=== PATIENT | female | born 1985 | race African-American/Black ===

== ENCOUNTER 2016-12-14 10:09 | Inpatient (IN) | payer MEDICAID ==
[2016-12-14] MEDS ORDERED: ULTRAM50 MG PO (12:15)
[2016-12-14] MEDS ORDERED: METOPROLOL TART50 MG PO (12:16)
[2016-12-14] MEDS ORDERED: KEPPRA500 MG PO (12:16)
[2016-12-14] MEDS ORDERED: RENAGEL800 MG PO (12:17)
[2016-12-14] MEDS ORDERED: ROCALTROL0.25 MCG PO (12:19)
[2016-12-14] MEDS ORDERED: LANTUS INSULIN10 ML SC ×2 (12:20→12:21)
[2016-12-14] MEDS ORDERED: HUMALOG 30100 UNITS/ SC (12:20)
[2016-12-14 12:38] VITALS: BMI 22.6
[2016-12-14 12:40] LABS: HCG URINE NEGATIVE (NEGATIVE)
[2016-12-14 12:59] LABS: BASOPHILS 0.2 % (0-2); EOSINOPHILS 1.2 % (0-7); HEMATOCRIT 37.9 % (36.0-48.0); HEMOGLOBIN 11.9 g/dL (12-16); IMMATURE GRANULOCYTES 0.2 % (0-5); LYMPHOCYTES 11.6 % (15-50); MCH 29.8 pg (26.0-34.0); MCHC 31.4 g/dL (31.0-37.0); MCV 94.8 fL (80.0-100.0); MEAN PLATELET VOLUME 10.7 fL (7.4-10.4); MONOCYTES 7.4 % (2-11); NEUTROPHILS 79.4 % (40-80); PLATELET COUNT 240 10x3/uL (130-400); WBC 8.8 10x3/uL (4.8-10.8)
[2016-12-14 13:05] LABS: ANION GAP 19.2 mmol/L (8-16); CALCIUM 8.3 mg/dL (8.5-10.1); CARBON DIOXIDE 18.9 mmol/L (21.0-32.0); CREATININE - SERUM 10.8 mg/dL (0.6-1.3); POTASSIUM - SERUM 4.1 mmol/L (3.5-5.1)
[2016-12-14 13:08] LABS: INR 1.05 (0.85-1.17); PROTIME 13.5 SECONDS (11.6-15.0)
[2016-12-14 13:09] LABS: APTT 33.8 SECONDS (22.8-39.4)
--- NOTE | 2016-12-14 17:52 | NUR ---
RECIEVED FROM RECOVERY ROOM. V/S STABLE. BUPERNEX GIVEN FOR C/O PAIN. TO DIALYSIS PER BED
--- NOTE | 2016-12-14 18:35 | NUR ---
STILL IN DIALYSIS
[2016-12-14 18:42] LABS: HCG SERUM NEGATIVE (NEGATIVE)
--- NOTE | 2016-12-14 21:18 | NUR ---
PT BACK FROM DIALYSIS ASKING FOR FOOD AND PAIN RX. PT REMAINS ALERT AND ORIENTED. CONTINUE TO MONITOR CLOSELY.
[2016-12-15] VITALS: BP 160/98
[2016-12-15 04:00] VITALS: BP 183/107
--- NOTE | 2016-12-15 05:06 | NUR ---
PT RESTING COMFORTABLY THIS SHIFT, NO NEEDS. CONTINUE TO MONITOR CLOSELY.
[2016-12-15 05:14] LABS: BASOPHILS 0.3 % (0-2); EOSINOPHILS 1.8 % (0-7); HEMOGLOBIN 12.4 g/dL (12-16); IMMATURE GRANULOCYTES 0.4 % (0-5); LYMPHOCYTES 21.5 % (15-50); MCH 29.7 pg (26.0-34.0); MCHC 31.8 g/dL (31.0-37.0); MCV 93.3 fL (80.0-100.0); MEAN PLATELET VOLUME 10.5 fL (7.4-10.4); MONOCYTES 10.4 % (2-11); NEUTROPHILS 65.6 % (40-80); PLATELET COUNT 214 10x3/uL (130-400); RBC 4.18 10x6/uL (4.00-5.40); RDW 16.3 % (11.5-14.5); WBC 7.8 10x3/uL (4.8-10.8)
[2016-12-15 05:22] LABS: ANION GAP 15.4 mmol/L (8-16); CALCIUM 7.7 mg/dL (8.5-10.1)
[2016-12-15 05:23] LABS: CARBON DIOXIDE 24.6 mmol/L (21.0-32.0); CREATININE - SERUM 7.8 mg/dL (0.6-1.3)
--- NOTE | 2016-12-15 06:13 | NUR ---
CONSENTS FOR THROMBECTOMY, BLOOD, AND ANESTHESIA SIGNED AND IN PTS CHART.
[2016-12-15 07:16] VITALS: BP 161/96
--- NOTE | 2016-12-15 08:15 | NUR ---
PATIENT GONE TO OR PER BED
--- NOTE | 2016-12-15 09:13 | NUR ---
IN SURGERY AT THIS TIME. WILL MONITOR.
[2016-12-15 11:52] VITALS: BMI 22.6
--- NOTE | 2016-12-15 12:08 | NUR ---
PATIENT BACK FROM OR PER BED. RESTING WITH EYES CLOSED. ASSESSED LEFT ARM. BRUIT PRESENT. STATES NO NEEDS AT THIS TIME.
[2016-12-15 12:13] VITALS: BP 143/86; BMI 22.6
--- NOTE | 2016-12-15 15:03 | NUR ---
EXAMINED PATIENTS ARM. BRUIT IS PRESENT.
[2016-12-15 15:11] VITALS: BP 107/65
--- NOTE | 2016-12-15 17:31 | NUR ---
PATIENT RESTING IN BED, NO CHANGES. STATES NO NEEDS AT THIS TIME.
--- NOTE | 2016-12-15 18:00 | NUR ---
INTRODUCED SELF PRIMARY RN FOR THE DAY. RR EVEN AND UNLABORED. EXPLAINED THAT THEY WERE READY FOR PT IN DIALYSIS. TOOK PATIENT DOWN TO DIALYSIS X2 ASSIST. WILL GIVE REPORT.
--- NOTE | 2016-12-15 19:32 | NUR ---
REPORT RECEIVED. PT IN DIALYSIS AT THIS TIME.
[2016-12-15 20:00] VITALS: BP 92/47
--- NOTE | 2016-12-15 20:45 | NUR ---
PT BACK FROM DIALYSIS VIA BED. NO DISTRESS NOTED. WILL CONTINUE TO MONITOR.
--- NOTE | 2016-12-15 22:19 | NUR ---
ASSESSMENT COMPLTED AT 2044 HRS. BP 92/47. OTHER VSS. IV TO RFA SL. R CHEST HEMOPSLIT CLEAN,DRY AND INTACT. L UPPER ARM FISTULA WITH BRUIT NOTED. UNABLE TO PALPATE. LUNGS CTA. ULRAM 50MG PO GINVE FOR C/O R ARM PAIN. LOPRESSOR HELD DUE TO BP 92/47. REEVALUATED AT 2209 WITH PAIN STILL 9/10. BUPRENEX 0.1MG IV TO R UPPER BUTTOCKS GIVEN. WILL CONTINUE TO MONITOR. SR UP X2, CALL LIGHT WITHIN REACH.
[2016-12-16] VITALS: BP 136/95
--- NOTE | 2016-12-16 00:39 | NUR ---
PT STATED HE THREW UP HER DINNER. BED LINENS CAHNGED. PT DECLINED OFFER FOR IM PHENERGAN. WILL CONTINUE TO MONITOR.
--- NOTE | 2016-12-16 02:11 | NUR ---
PT RESTING WITH EYES CLOSED. RESP EVEN AND REGULAR. SR UP X2, CALL LIGHT WITHIN REACH.
[2016-12-16 04:00] VITALS: BP 167/98
--- NOTE | 2016-12-16 04:25 | NUR ---
PT KELLY BOLTON LEVEL NOW 06/27. WILL CONTINUE TO MONITOR.
[2016-12-16 05:06] LABS: BASOPHILS 0.4 % (0-2); EOSINOPHILS 1.7 % (0-7); HEMATOCRIT 39.5 % (36.0-48.0); HEMOGLOBIN 12.3 g/dL (12-16); IMMATURE GRANULOCYTES 0.3 % (0-5); LYMPHOCYTES 16.3 % (15-50); MCH 29.9 pg (26.0-34.0); MCHC 31.1 g/dL (31.0-37.0); MCV 95.9 fL (80.0-100.0); MEAN PLATELET VOLUME 10.8 fL (7.4-10.4); MONOCYTES 10.2 % (2-11); NEUTROPHILS 71.1 % (40-80); PLATELET COUNT 217 10x3/uL (130-400); RBC 4.12 10x6/uL (4.00-5.40); RDW 16.3 % (11.5-14.5); WBC 7.1 10x3/uL (4.8-10.8)
[2016-12-16 05:23] LABS: CALCIUM 7.5 mg/dL (8.5-10.1); CREATININE - SERUM 7.1 mg/dL (0.6-1.3)
--- NOTE | 2016-12-16 06:05 | NUR ---
VSS THROUGHOUT NIGHT. PT STATED L ARM PAIN DOWN TO A 5/10. NEEDS MET; WILL CONTINUE TO MONITOR.
[2016-12-16 08:00] VITALS: BP 128/84
[2016-12-16] MEDS ORDERED: HYDROCODONE-APA1 TAB PO (09:05)
[2016-12-16] MEDS ORDERED: PLAVIX75 MG PO (09:32)
--- NOTE | 2016-12-16 12:51 | NUR ---
IV DCD. DC PLANS GIVEN. UNDERSTANDING VOICED.
--- NOTE | 2016-12-16 12:58 | NUR ---
CM WAS NOTIFIED 12/15 OF POSSIBLE ASSISTANCE FOR DISCHARGE TO HOME SATURDAY OR SATURDAY. PATIENT FOR DISCHARGE TO HOME TODAY VIA TAXI. CM WENT TO THE BEDSIDE. VERIFIED THAT PATIENT NEEDS ASSISTANCE. CLARIFIED ADDRESS FOR TAXI SERVICE. TC TO [facility] AT . SPOKE WITH PAT TO ARRANGE PICKUP AT 1400 PER PATIENT REQUEST TO GO AFTER LUNCH.
--- NOTE | 2016-12-16 13:59 | NUR ---
ESCORTED TO MEET TAXI BY W/C.
--- NOTE | 2016-12-19 14:25 | OP ---
PATIENT NAME: ARSH DUNAWAY MEDICAL RECORD: [id number] :84 LOCATION:D.M2 D.2126 ADMISSION DATE:12/14/16 SURGEON: CURTIS GARCIA MD DATE OF OPERATION: 12/15/2016 REFERRING PHYSICIAN: Dr. Morris of [place]. PREOPERATIVE DIAGNOSIS: Thrombosis of left upper extremity arteriovenous graft. 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 The basilic vein just proximal to the venous anastomosis. OPERATION PERFORMED: Open fistulogram with balloon angioplasty of mechanical thrombolysis and Lutonix drug-coated balloon treatment of area of recurrent stenosis of the basilic vein and implantation of a jump graft of 6-mm straight standard wall thickness Versailles Propaten PTFE. SURGEON: Curtis Garcia MD ANESTHESIA: General per JR. JAVA DEVELOPER with LMA. PREOPERATIVE NOTE: Ms. Dunaway is a 31-year-old -Filipino female with end-stage renal disease, who is on hemodialysis, but has suffered several dialysis access failures already in her young age. She now has a left arm was prepped and draped in a sterile manner. I made an oblique incision over the juxta-arterial segment of PTFE and this was exposed and controlled with atraumatic vascular clamps and Silastic loops as necessary. An additional incision was made over the venous segment of the upper arm. I accessed the graft and placed a 8-S[place]an introducer sheath directed proximally and occluded the graft distal to that with a vascular clamp. I was then able to cross the area of thrombosis with a Glidewire and I used a 10 mm diameter angioplasty balloon to dilate the recurrent stenosis of the basilic vein, which was about 70% to 80% and this balloon was also used to macerate clot in the venous outflow and the body of the PTFE graft, clots were aspirated during this process through the sheath. After this, contrast was injected with digital subtraction angiography technique and the area of stenosis in the basilic vein clearly seen and dilated with a 10-mm diameter Conquest balloon, which achieved full effacement at 28 atmospheres. The patient was systemically heparinized with 5000 units of heparin. I used a 6 cm long 10mm diameter Bard Lutonix drug-coated balloon to treat the area of concern. As this was a recurrent lesion, which had been successfully dilated to less than 10% residual stenosis, it is very likely to recur and cause failure of her access. I am still trying to avoid stenting that segment. I then transected the graft at the proximal and distal incisions and I implanted a 6 mm standard wall thickness straight Versailles Propaten heparin-bonded PTFE graft placed into the tunnel lateral to the original graft as close to the skin as possible. The anastomosis was conducted with a 6-0 Prolene and the suture lines treated with BioGlue prior to releasing the occluding clamps. When completed, excellent flow was established in the fistula. Doppler flow in the radial and ulnar arteries at the wrist was weak with and without occlusion of the graft, although worse with occlusion with the graft not being occluded. I then applied a clamp to the graft and with micropuncture catheter performed a retrograde angiogram of the brachial artery and noted that her vessels were small, but there was no occlusions or lesions of the brachial artery or the radial and ulnar arteries. There is inadequate flow OPERATIVE REPORT [id number] ARSH DUNAWAY to the hand. The micropuncture hole in the graft was closed with a [id number] 6-0 Prolene and some more BioGlue was not necessary to reverse the patient's heparin. The wounds were irrigated with Ancef/gentamicin solution and infiltrated with 0.25% Marcaine. The wounds were closed without the use of a drain approximating subcutaneous tissues with interrupted inverted 3-0 Vicryl and the skin was closed with running intracuticular 4-0 Monocryl. Doppler examination revealed good flow in the graft and later auscultation confirmed an excellent bruit was audible. The wounds were dressed with Maxorb Ag, Tegaderm, and Cavilon skin prep after being closed and sealed with Dermabond glue. The patient was awakened and in stable condition taken to the recovery room. The patient will stay in the hospital tonight and may possibly be ready to go home tomorrow assuming her pain control was adequate and she has no other complications. She has a tunneled dialysis catheter in the right internal jugular vein, which should be used for hemodialysis for at least the next 2 weeks. I would like to wait 2 weeks before we access this new graft. Also, I would like her to be placed on Plavix 75 mg once a day and continued on that barring any complications from it for a prolonged awaiting definite area of time as I think she has still to be considered at high risk for recurrent stenosis and thrombosis of her access. TRANSINT:[id number] Voice Confirmation ID: [id number] DOCUMENT ID: [id number] CURTIS GARCIA MD at 1425 CC: [id number] DICTATION DATE: 12/15/16 1134 EARTH MOVING TECHNICIAN: 12/15/16 1254 DIS IN 12/16/16 [place] [id number] [place] [id number]
--- NOTE | 2016-12-19 14:25 | OP ---
PATIENT NAME: ARSH DUNAWAY MEDICAL RECORD: [id number] :84 LOCATION:D.M2 D.2126 ADMISSION DATE:12/14/16 SURGEON: CURTIS GARCIA MD DATE OF OPERATION: 12/14/2016 She came to the hospital as an outpatient, but she is being admitted today to the inpatient status. PREOPERATIVE DIAGNOSIS: End-stage renal disease, on dialysis and dependent on hemodialysis with thrombosis of left arm AV graft. POSTOPERATIVE DIAGNOSIS: End-stage renal disease, on dialysis and dependent on hemodialysis with thrombosis of left arm AV graft. OPERATION PERFORMED: Insertion of a tunneled dialysis catheter via right internal jugular vein using ultrasound and fluoroscopic guidance. SURGEON: Curtis Garcia MD ANESTHESIA: General with LMA per REGIONAL SALES COORDINATOR. REFERRING PHYSICIAN: 1. Christophe Bryant MD 2. Dr. Morris in [place]. PREOPERATIVE NOTE: Arsh Dunaway is a 31-year-old -Citizen Of [place] female with end-stage renal disease, on chronic hemodialysis. She has had several dialysis access failures, most recently has been dialyzing successfully with a left arm brachial artery to basilic vein rainbow configuration PTFE graft. I saw for the first time on Saturday of this week at [facility]. 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 At angiography, I found there was a total occlusion of the basilic vein just proximal to the venous anastomosis with venous outflow entirely passing distally retrograde in the basilic vein and via collaterals. I was able to cross the total occlusion with the guidewire and opened it with angioplasty balloon. I wanted to avoid a stent in that location at this time and planned to return the patient to the OR for drug-coated balloon angioplasty within a couple of weeks. I also at that time on Saturday repaired the body of the graft dilating entero graft segmental stenoses and covering the pseudoaneurysms with PTFE covered fluency endovascular stent. When last seen on Saturday, the graft was functioning well and she was allowed to go on home to [facility]. She presented for dialysis on in [place] and it was found that her graft was thrombosed. She was sent here and arrived this morning, she is brought to the operating room at this time with plans to insert the dialysis catheter so that she can be dialyzed this afternoon. Her weight is up over 5 or 6 kilograms and I saw that she needs to dialyze before having any more prolonged operation. I hope to return her to the operating room and tomorrow morning to go ahead and revise and do a thrombectomy and revision of her AV graft. DESCRIPTION OF PROCEDURE: With the patient under light general anesthesia with LMA per REGIONAL SALES COORDINATOR in the supine position, she was prepped and draped in a sterile manner. She had had prior catheters on the right, but with ultrasound, I found the right internal jugular vein to be patent, although quite sclerotic. I was able to access that vein using ultrasound guidance and micropuncture technique OPERATIVE REPORT [id number] ARSH DUNAWAY and passed serial guides and guidewires and dilated the tract, I was able to insert a peel-away dilator introducer. I chose a 19-cm HemoSplit, made a new entry site for it beneath the clavicle and pulled the catheter through the subcutaneous tunnel. It was then inserted through the peel-away sheath, its tips reached into the right atrium appropriately; however, I did have a problem with some persistent kinking at the site where the catheter turns down to dive in the internal jugular vein just above the clavicle and I believe that this has been fixed with the manipulation of the catheter position and hopefully, we will continue to improve with the catheter and body temperature. Both lumens of the graft were aspirated and returned blood easily. At the completion of the procedure, the graft was flushed easily with saline and then heparin locked with heparin 100 units per cc. It was clamped and capped. It was sutured to the skin near the entry site with 2-0 Prolene. The entry site dressed with a chlorhexidine Biopatch and central venous standard dressing. The cervical incision was closed with interrupted inverted 3-0 Vicryl and Dermabond glue. It was dressed with Maxorb Ag, Tegaderm, and Cavilon skin prep. The patient was awakened and returned to the recovery room in stable condition. Blood loss during the operation was about 10 cc. All sponges, instruments, and needles were accounted for. No drain was used and no surgical specimen was submitted for histopathology. TRANSINT:[id number] Voice Confirmation ID: [id number] DOCUMENT ID: [id number] CURTIS GARCIA MD at 1425 CC: CHRISTOPHE BRYANT MD and NEO MORRIS MD [id number] DICTATION DATE: 12/14/16 1604 [place]UR[place] OFFICIAL: 12/14/16 1740 DIS IN 12/16/16 [place] [id number] [place] [address]
== END 2016-12-16 14:00 | disposition home or self-care (01) | DRG 252 ==
LOC: D.OPS 10:09 → EDSTATUS 12:30 → D.SDCHOLD 12:30 → D.M2 16:24 → D.OPS 16:25 → D.M2 16:42
PROVIDERS: Anesthesiology; Internal Medicine Nephrology; Surgery; ADMIT Internal Medicine
PROC: B2141ZZ Fluoroscopy of Right Heart using Low Osmolar Contrast (ICD-10-PCS; 2016-12-14)
PROC: B244ZZZ Ultrasonography of Right Heart (ICD-10-PCS; 2016-12-14)
PROC: 5A1D70Z Performance of Urinary Filtration, Intermittent, Less than 6 Hours Per Day (ICD-10-PCS; 2016-12-14)
PROC: 02H633Z Insertion of Infusion Device into Right Atrium, Percutaneous Approach (ICD-10-PCS; principal; 2016-12-14 12:30)
PROC: 057C0ZZ Dilation of Left Basilic Vein, Open Approach (ICD-10-PCS; 2016-12-15)
PROC: 05CC0ZZ Extirpation of Matter from Left Basilic Vein, Open Approach (ICD-10-PCS; 2016-12-15)
PROC: 03180KF Bypass Left Brachial Artery to Lower Arm Vein with Nonautologous Tissue Substitute, Open Approach (ICD-10-PCS; 2016-12-15)
PROC: B51W1ZZ Fluoroscopy of Dialysis Shunt/Fistula using Low Osmolar Contrast (ICD-10-PCS; 2016-12-15)
PROC: B31J1ZZ Fluoroscopy of Left Upper Extremity Arteries using Low Osmolar Contrast (ICD-10-PCS; 2016-12-15)
DX: T82.868A Thrombosis due to vascular prosthetic devices, implants and grafts, initial encounter (principal); N18.6 End stage renal disease; I12.0 Hypertensive chronic kidney disease with stage 5 chronic kidney disease or end stage renal disease; Y83.8 Other surgical procedures as the cause of abnormal reaction of the patient, or of later complication, without mention of misadventure at the time of the procedure; E11.22 Type 2 diabetes mellitus with diabetic chronic kidney disease; Z99.2 Dependence on renal dialysis; Z79.4 Long term (current) use of insulin